=== PATIENT | male | born 1945 | race Caucasian/White ===

== ENCOUNTER 2018-05-18 12:54 | Outpatient (CLI) | payer MEDICARE ==
[2018-05-18 14:30] LABS: Bilirubin Negative (Negative); Blood, Urine Negative (Negative); Clarity CLEAR (Clear); Glucose, Urine (Dipstick) Negative (Negative); Leukocyte Negative (Negative); Nitrite Negative (Negative); Protein, Urine (Dipstick) Negative (Neg-Trace); Specific Gravity, Urine 1.011 (1.002-1.036); Urobilinogen 0.2 mg/dL (0.2-1.0); pH, Urine 5.5 (5.0-9.0)
[2018-05-18 14:38] LABS: Bacteria/HPF None Seen HPF (None Seen); Hyaline Casts/LPF 0-3 HYALINE CAST LPF (0-3 Hyaline); RBC/HPF 0-3 HPF (0-3); Squamous Epithelial None Seen HPF (0-3); WBC/HPF None Seen HPF (0-3)
--- NOTE | 2018-05-18 15:55 | EKG ---
Test Reason : Blood Pressure : / mmHG Vent. Rate : 067 BPM Atrial Rate : 067 BPM P-R Int : 180 ms QRS Dur : 096 ms QT Int : 396 ms P-R-T Axes : 054 063 047 degrees QTc Int : 418 ms Normal sinus rhythm Incomplete right bundle branch block Borderline ECG Confirmed by TOMMIE ALVARADO ([id number]) on 05/18/2018 3:55:45 PM Referred By: SHREE Confirmed By:TOMMIE ALVARADO
== END 2018-05-18 12:55 | disposition home or self-care (01) ==
LOC: LABBT 12:54
PROVIDERS: ATTEND Orthopaedic Surgery
DX: Z01.818 Encounter for other preprocedural examination (principal); M16.12 Unilateral primary osteoarthritis, left hip
CPT/HCPCS: 81001; 87081; 93005; 93010

== ENCOUNTER 2018-05-18 13:00 | Inpatient (IN) | payer MEDICARE ==
--- NOTE | 2018-05-25 09:06 | HP ---
HISTORY OF PRESENT ILLNESS: This is a 73-year-old male with a long history of progressive problems with his left hip without injuries. He has had progressive symptoms despite rest, restriction of activities, anti-inflammatory medications, cortisone injections and life style adjustments. The pain is interfering with his daily activities of walking, getting dressed, working and sleeping. PAST MEDICAL HISTORY: Please see old chart. The patient has had previous right total hip replacement and right total knee replacement with good results. He has no major medical problems. ALLERGIES: HE HAS NO KNOWN ALLERGIES. MEDICATIONS: He has been taking ibuprofen for his current complaints. FAMILY HISTORY: Otherwise unremarkable. SOCIAL HISTORY: Otherwise unremarkable. REVIEW OF SYSTEMS: Otherwise unremarkable. PHYSICAL EXAMINATION: GENERAL: Reveals a healthy male. HEENT: Unremarkable. NECK: Supple. CHEST: Clear. HEART: Regular rate and rhythm. ABDOMEN: Soft, nontender. RECTAL AND GENITAL EXAMS: Deferred. EXTREMITIES: Pertinent findings in the left hip. Leg lengths were equal. There is tenderness over the greater trochanter and anterior hip. There is decreased range of motion and groin pain with internal rotation of the left hip. There is left antalgic gait. NEUROVASCULAR: Intact. DIAGNOSTIC STUDIES: X-rays of the left hip reveal moderately severe DJD and joint narrowing, which has progressed from previous x-rays. MRI scan of the left hip reveals significant DJD, which is more pronounced than x-ray. LABORATORY DATA: Laboratory studies reveal the patient did have 2/3 positive MRSA screens and has been treated with Hibiclens bath and Bactroban nasal ointment. IMPRESSION: Degenerative arthritis, left hip. Status post right total hip replacement. Status post right total knee replacement. History of positive methicillin-resistant Staphylococcus aureus screen. PLAN: Left total hip replacement. The nature of the surgery, length of recovery, potential complications such as infection, loss of motion, incomplete relief, thromboembolic phenomena, leg-length discrepancy, possible transfusion, need for revision have been discussed in detail. Job ID: [id number] [facility]
[2018-05-29] MEDS ORDERED: Vancomycin HCl 1.5 GM in Sodium Chloride 0.9% 250 ML 300 ML IVPB SCH ×3 (06:00→18:00)
[2018-05-29] MEDS ORDERED: Midazolam HCl 2 mg/2 ml Vial ONE (06:28)
[2018-05-29] MEDS ORDERED: Fentanyl 100 MCG/2 ML VIAL ONE (06:28)
[2018-05-29] MEDS ORDERED: Lidocaine 1.5% w/Epi 1:200K 30 ML VIAL (Epid Use) ONE (06:29)
[2018-05-29] MEDS ORDERED: Tranexamic Acid 1,000 MG/10 ML VIAL ONE ×2 (07:01→09:02)
[2018-05-29] MEDS ORDERED: Sodium Chloride 0.9% 100 ML ONE (07:01)
[2018-05-29] MEDS ORDERED: Albuterol Sulfate HFA (OR ONLY) ONE (07:03)
[2018-05-29] MEDS ORDERED: Ropivacaine 0.2% HCl/PF 20 ML ONE (07:21)
[2018-05-29] MEDS ORDERED: traMADol HCl 50 MG TAB PO PRN ×3 (07:30→10:10)
[2018-05-29] MEDS ORDERED: Zolpidem Tartrate 5 MG TAB PO PRN ×2 (07:30→10:10)
[2018-05-29] MEDS ORDERED: Naloxone HCl 0.4 mg/ml Vial IVP PRN (07:30)
[2018-05-29] MEDS ORDERED: Ondansetron PF 4 MG/2 ML Vial IVP PRN ×2 (07:30→10:10)
[2018-05-29] MEDS ORDERED: Naloxone HCl 0.4 mg/ml Vial IV PRN (07:30)
[2018-05-29] MEDS ORDERED: Promethazine HCl 25 MG/ML VIAL IM PRN (07:30)
[2018-05-29] MEDS ORDERED: Promethazine HCl 25 MG SUPP PR PRN (07:30)
[2018-05-29] MEDS ORDERED: Hydrocerin (Eucerin) Cream 120 gm Jar TOP PRN (07:30)
[2018-05-29] MEDS ORDERED: diphenhydrAMINE 50 MG/ML VIAL IM PRN (07:30)
[2018-05-29] MEDS ORDERED: HYDROcodone/Acetaminophen 5/325 mg Tablet PO PRN (07:30)
[2018-05-29] MEDS ORDERED: diphenhydrAMINE 50 MG/ML VIAL IVP PRN (07:30)
[2018-05-29] MEDS ORDERED: Bupivacaine 0.25% 10 ML VIAL EPIDURAL PRN (07:30)
[2018-05-29] MEDS ORDERED: Sodium Chloride 0.9% 10 ML ONE (07:32)
[2018-05-29] MEDS ORDERED: Tranexamic Acid 1,000 MG/10 ML VIAL IVP SCH (09:00)
[2018-05-29] MEDS ORDERED: Tranexamic Acid 1,000 MG in Sodium Chloride 0.9% 100 ML IVPB SCH ×2 (09:00→10:10)
[2018-05-29] MEDS ORDERED: Fentanyl 5 mcg/Bup 0.075% Cadd 100 ML EPIDURAL ONE (09:13)
[2018-05-29] MEDS ORDERED: Albuterol Sulfate 2.5 mg/3 ml Neb NEB PRN (10:10)
[2018-05-29] MEDS ORDERED: diphenhydrAMINE 25 MG CAP PO PRN ×2 (10:10)
[2018-05-29] MEDS ORDERED: Acetaminophen 325 MG TAB PO PRN (10:10)
[2018-05-29] MEDS ORDERED: Promethazine HCl 25 MG/ML VIAL SLOW IVP PRN (10:10)
[2018-05-29] MEDS ORDERED: HYDROcodone/Acetaminophen 10/325 mg Tablet PO PRN ×2 (10:10)
[2018-05-29] MEDS ORDERED: Fentanyl 100 MCG/2 ML VIAL SLOW IVP PRN ×2 (10:10)
[2018-05-29] MEDS ORDERED: Rocuronium Bromide 10 MG/ML (10ML VIAL) ONE (10:25)
[2018-05-29] MEDS ORDERED: Lidocaine 1% PF 5 ML VIAL ONE (10:25)
[2018-05-29] MEDS ORDERED: Ondansetron PF 4 MG/2 ML Vial ONE (10:25)
[2018-05-29] MEDS ORDERED: PHENYLEPHRINE-NS 100 MCG/ML 10 ML SYRINGE ONE (10:25)
[2018-05-29] MEDS ORDERED: Glycopyrrolate 0.2 MG/ML 5 ML SYRINGE ONE (10:25)
[2018-05-29] MEDS ORDERED: PROPOFOL 200 MG/20 ML VIAL ONE (10:25)
[2018-05-29] MEDS: Sodium Chloride 0.9% 1,000 ML IV SCH ×2 (10:37→21:31)
[2018-05-29] MEDS ORDERED: Lactinex Tablet PO SCH (10:45)
[2018-05-29] MEDS ORDERED: Aspirin 81 mg Enteric Coated Tablet PO SCH (10:45)
--- NOTE | 2018-05-29 11:03 | RAD ---
TWO TO 3 VIEW LEFT HIP SERIES: INDICATION: Postop total hip, portable. FINDINGS: There is a left hip arthroplasty appropriately located without hardware complication. Surgical sutur e material is seen overlying the partially imaged left hemipelvis. IMPRESSION: Postoperative left hip without acute hardware complication. POS: DEM[facility]RIS
[2018-05-29] MEDS ORDERED: Ketorolac Tromethamine 30 MG/ML VIAL IVP SCH (12:00)
--- NOTE | 2018-05-29 12:13 | OP ---
DATE OF PROCEDURE: 05/29/2018 FORM DRAFTER: Ragini Mcintyre PA-C ANESTHESIA: General plus epidural. PREOPERATIVE DIAGNOSIS: Degenerative arthritis, left hip. POSTOPERATIVE DIAGNOSIS: Degenerative arthritis, left hip. PROCEDURE PERFORMED: Left total hip replacement with uncemented [place] Trident PSL acetabular component, 56 mm with X3 polyethylene insert, and uncemented [place] Accolade femoral stem size #4 with 132 degree neck angle trunnion, and 36 mm standard neck length metal femoral head. DESCRIPTION OF PROCEDURE: After satisfactory anesthesia was induced in supine position, sequential compression devices were placed on the nonoperative leg throughout the procedure. The patient was then placed in the left lateral decubitus position. This position was held with the hip positioning device. The patient's left hip was then prepped and draped in routine sterile fashion. The hip was approached through a lateral curvilinear incision centered over the greater trochanter, carried down through the subcutaneous tissues and bleeding points were controlled with the Bovie cautery. IT band and gluteal fascia were split in-line with the skin incision. A direct lateral approach to the hip joint was accomplished by dividing the anterior third of the gluteus medius and minimus tendons with the Bovie cautery and flexing this as a single flap anteriorly and medially along with the vastus lateralis. Anterior capsulectomy was performed and hip dislocated anteriorly. There was markedly degenerative arthritis of the hip. Femoral neck was osteotomized with oscillating saw using a trial prosthesis as a guide. The acetabulum was exposed and cleaned of all soft tissue and debris and then reamed in sequence with prior reamers to a total of 56 mm down to bleeding subchondral bone. It was felt that a 56 mm Trident PSL outer shell to place in a press-fit fashion. The permanent outer shell was hammered in position. There was good fit and stability at the outer rim and the permanent X3 polyethylene insert was placed. The proximal femur was then exposed and opened with a box osteotome and rasped in sequence to accept a #4 Accolade femoral rasp. The 132 degree neck angle trunnion was then placed on the rasp and trial reduction with a standard neck length 36 mm head gave appropriate size, fit, and stability. The hip was again dislocated anteriorly and the trial components were removed. The hip was copiously irrigated with pulsatile lavage. The permanent #4 Accolade femoral stem was then hammered in position. There was again good fit and stability of the component. The standard neck length 36 mm metal head was then placed on the trunnion. The hip again reduced and found to be stable. The knee was then copiously irrigated. The abductors were repaired with interrupted #2 Vicryl. IT band and gluteal fascia were closed with interrupted #2 Vicryl and a running #2 Quill. Subcutaneous tissues were closed with a running 0 Quill suture and the skin was closed with running subcuticular 3-0 Monoderm and SurgiSeal skin adhesive. Sterile dressing was applied and the patient was turned to the supine position with a pillow placed between his legs. Sequential compression devices were applied to the operative leg. He was awakened, taken to the Recovery Room in stable condition. There were no apparent intraoperative complications. The estimated blood loss was 300 mL. Job ID: [id number]
[2018-05-29] MEDS: Ketorolac Tromethamine 30 MG/ML VIAL IVP SCH ×3 (13:11→23:04)
[2018-05-29] MEDS: diphenhydrAMINE 25 MG CAP PO PRN ×2 (15:02→21:32)
[2018-05-29] MEDS: CEFAZOLIN 2 GM in Premix Bag 1 BAG IVPB SCH ×2 (15:03→22:00)
[2018-05-29] MEDS ORDERED: SAW PALMETTO 900 MG PO SCH (21:00)
[2018-05-29] MEDS: Aspirin 81 mg Enteric Coated Tablet PO SCH (21:28)
[2018-05-29] MEDS: Lactinex Tablet PO SCH (21:28)
[2018-05-30] MEDS: Fentanyl 5 mcg/Bup 0.075% Cadd 100 ML EPIDURAL SCH ×2 (01:05→18:47)
[2018-05-30 05:24] LABS: Hemoglobin 12.8 g/dL (14.0-18.0); Mean Corpuscular HGB CONC 32.9 g/dL (32.0-36.0); Mean Corpuscular Hemoglobin 33.1 pg (27.0-31.0); Mean Platelet Volume 5.9 fL (7.4-10.4); Platelet Count 219 thou/uL (130-400); Red Blood Cell (RBC) Count 3.86 mill/uL (4.70-6.10); White Blood Cell (WBC) Count 11.8 thou/uL (4.8-10.8)
[2018-05-30] MEDS: Ketorolac Tromethamine 30 MG/ML VIAL IVP SCH ×4 (06:07→23:25)
[2018-05-30] MEDS: Sodium Chloride 0.9% 1,000 ML IV SCH ×2 (06:41→15:45)
[2018-05-30] MEDS: Multivitamin W/ Minerals 1 TAB PO SCH (07:29)
[2018-05-30] MEDS: Ferrous Gluconate 324 MG TAB PO SCH ×2 (07:29→16:31)
[2018-05-30] MEDS: Lactinex Tablet PO SCH ×3 (07:29→21:06)
[2018-05-30] MEDS: HYDROcodone/Acetaminophen 5/325 mg Tablet PO PRN ×2 (07:30→19:51)
[2018-05-30] MEDS: Senokot S 8.6-50 MG TAB PO SCH ×2 (07:30→21:07)
[2018-05-30] MEDS: Aspirin 81 mg Enteric Coated Tablet PO SCH ×2 (07:30→21:06)
[2018-05-30] MEDS ORDERED: Benzonatate 100 MG CAP PO PRN (09:01)
[2018-05-30] MEDS ORDERED: Nitroglycerin 0.4 MG TAB (25 Tab Bottle) SL PRN (09:01)
[2018-05-30] MEDS ORDERED: hydrALAZINE 20 MG/ML VIAL SLOW IVP PRN (09:01)
[2018-05-30] MEDS ORDERED: Diabetic Tussin 200 MG/10 ML UDCUP PO PRN (09:01)
[2018-05-30] MEDS ORDERED: Bisacodyl 5 MG TAB PO PRN (09:01)
[2018-05-30] MEDS ORDERED: Calcium Carbonate 500 MG ChewTAB PO PRN (09:01)
[2018-05-30] MEDS ORDERED: cloNIDine 0.1 MG TAB PO PRN (09:01)
[2018-05-30] MEDS ORDERED: Acetaminophen 325 MG TAB PO PRN (09:07)
[2018-05-30 11:08] VITALS: BMI 30.4
--- NOTE | 2018-05-30 12:56 | PDOC.PN ---
- Subjective Encounter Start Date: 05/30/18 Encounter Start Time: 12:55 Subjective: pt seen and examined .has some complaints of SOB on exertion -: some congestion. -: s/p Left THR - Objective MAR Reviewed: Yes Vital Signs & Weight: Vital Signs (12 hours) Temp Pulse Resp BP Pulse Ox 05/30/18 07:55 98.6 F 98 20 109/68 93 L 05/30/18 07:39 88 L 05/30/18 04:28 98.3 F 88 20 136/68 96 Weight Admit Weight 212 lb Weight 212 lb I&O: 05/29/18 05/30/18 05/31/18 06:59 06:59 06:59 Intake Total 2761.0 1272 Output Total 1500 Balance 1261.0 1272 Result Diagrams: 05/30/18 05:13 Additional Labs: Laboratory Tests 05/23/18 05/23/18 05/30/18 13:25 13:25 05:13 WBC 9.7 11.8 H Hgb 15.5 12.8 L Sodium 131 L Potassium 4.0 Chloride 104 Carbon Dioxide 24 Anion Gap 7 L BUN 12 Creatinine 0.85 Glucose 128 H Phys Exam - Physical Examination Constitutional: NAD HEENT: PERRLA, moist MMs, sclera anicteric, oral pharynx no lesions Neck: no nodes, no JVD, supple, full ROM Respiratory: no wheezing, no rales, no rhonchi, clear to auscultation bilateral Cardiovascular: RRR, no significant murmur, no rub Gastrointestinal: soft, non-tender, no distention, positive bowel sounds Musculoskeletal: no edema, pulses present Neurological: non-focal, normal sensation, moves all 4 limbs Psychiatric: normal affect, A&O x 3 Skin: no rash Dx/Plan (1) Osteoarthritis Code(s): M19.90 - UNSPECIFIED OSTEOARTHRITIS, UNSPECIFIED SITE Status: Chronic Qualifiers: Osteoarthritis location: hip Laterality: right (2) Status post total hip replacement, left Code(s): Z96.642 - PRESENCE OF LEFT ARTIFICIAL HIP JOINT Status: Acute - Plan DVT proph w/SCDs ASA bid for stroke prophylaxis. add pepcid for GI prophylaxis -: AM labs -: add mucinex.prn nebs,long history of smoking -: add prn meds * . Review of Systems - Review of Systems Constitutional: negative: fever, chills, sweats, weakness, malaise, other ENT: negative: Ear Pain, Ear Discharge, Nose Pain, Nose Discharge, Nose Congestion, Mouth Pain, Mouth Swelling, Throat Pain, Throat Swelling, Other Respiratory: SOB with Excertion, Sputum. negative: Cough, Dry, Shortness of Breath, Hemoptysis, Pleuritic Pain, Wheezing Cardiovascular: negative: chest pain, palpitations, orthopnea, paroxysmal nocturnal dyspnea, edema, light headedness, other Gastrointestinal: negative: Nausea, Vomiting, Abdominal Pain, Diarrhea, Constipation, Melena, Hematochezia, Other Genitourinary: negative: Dysuria, Frequency, Incontinence, Hematuria, Retention , Other Musculoskeletal: negative: Neck Pain, Shoulder Pain, Arm Pain, Back Pain, Hand Pain, Leg Pain, Foot Pain, Other Neurological: negative: Weakness, Numbness, Incoordination, Change in Speech, Confusion, Seizures, Other - Medications/Allergies Allergies/Adverse Reactions: Allergies Allergy/AdvReac Type Severity Reaction Status Date / Time morphine Allergy "FEELS Verified 05/18/18 13:04 VERY BAD" ADHESIVE TAPE Allergy RASH, Uncoded 05/18/18 13:04 BLISTERS Medications: Current Medications Acetaminophen (Tylenol) 650 mg PO Q4H PRN PRN Reason: Headache/Fever or Pain Acetaminophen (Tylenol) 650 mg PO Q6H PRN PRN Reason: Headache/Fever or Pain Hydrocodone Bitart/Acetaminophen ([place] 5/325) 1 tab PO Q4H PRN PRN Reason: Mild Pain 1-3 Hydrocodone Bitart/Acetaminophen ([place] 5/325) 2 tab PO Q4H PRN PRN Reason: For Moderate Pain 4-6 Last Admin: 05/30/18 07:30 Dose: 2 tab Acidophilus (Floranex) 2 tab PO BID [facility] Last Admin: 05/30/18 10:07 Dose: Not Given Albuterol Sulfate (Ventolin) 2.5 mg NEB Q6H PRN PRN Reason: SOB &/or Wheezing Aspirin (Ecotrin) 81 mg PO BID [facility] Last Admin: 05/30/18 07:30 Dose: 81 mg Benzonatate (Tessalon) 100 mg PO Q6H PRN PRN Reason: Cough Bisacodyl (Dulcolax) 10 mg PO DAILYPRN PRN PRN Reason: Constipation Calcium Carbonate (Tums) 1,000 mg PO Q4H PRN PRN Reason: Heartburn or Indigestion Clonidine (Catapres) 0.1 mg PO Q4H PRN PRN Reason: SBP > _160___ Diphenhydramine HCl (Benadryl) 25 mg PO Q3H PRN PRN Reason: Itching Last Admin: 05/29/18 21:32 Dose: 25 mg Diphenhydramine HCl (Benadryl) 25 mg IM Q3H PRN PRN Reason: Itching Diphenhydramine HCl (Benadryl) 25 mg IVP Q3H PRN PRN Reason: Itching Diphenhydramine HCl (Benadryl) 50 mg PO HS PRN PRN Reason: Allergies Emollient Cream (Hydrocerin Cream) 0 gm TOP PRN PRN PRN Reason: Itching Famotidine (Pepcid) 20 mg PO BID [facility] Ferrous Gluconate (Fergon) 324 mg PO BID[facility] Last Admin: 05/30/18 07:29 Dose: 324 mg Guaifenesin (Robitussin Sf) 200 mg PO Q4H PRN PRN Reason: Cough Hydralazine HCl (Apresoline) 10 mg SLOW IVP Q4H PRN PRN Reason: SBP > 180 and HR < 70 Fentanyl Citrate (Fentanyl/Bupivacaine) 100 mls @ 6 mls/hr EPIDURAL INF [facility] Last Admin: 05/30/18 01:05 Dose: 100 mls Sodium Chloride (Normal Saline 0.9%) 1,000 mls @ 100 mls/hr IV .Q10H [facility] Last Admin: 05/30/18 06:41 Dose: Not Given Iron/Minerals/Multivitamins (Theragran M) 1 tab PO DAILY [facility] Last Admin: 05/30/18 07:29 Dose: 1 tab Ketorolac Tromethamine (Toradol) 15 mg IVP Q6HR [facility] Stop: 05/31/18 06:01 Last Admin: 05/30/18 06:41 Dose: 15 mg Miscellaneous Information (Communication Order-Pharmacy) 1 each FS ASDIR [facility] Naloxone HCl (Narcan) 0.2 mg IV Q5MIN PRN PRN Reason: RR <=8 OR OBTUNDED/UNAROUSABLE Naloxone HCl (Narcan) 0.1 mg IVP Q15MIN PRN PRN Reason: URINARY RETENTION Nitroglycerin (Nitrostat) 0.4 mg SL Q5MIN PRN PRN Reason: Chest Pain Ondansetron HCl (Zofran) 4 mg IVP Q6H PRN PRN Reason: Nausea/Vomiting Promethazine HCl (Phenergan) 12.5 mg IM Q4H PRN PRN Reason: Nausea Promethazine HCl (Phenergan Suppository) 25 mg NH Q4H PRN PRN Reason: Nausea/Vomiting Promethazine HCl (Phenergan) 12.5 mg SLOW IVP Q4H PRN PRN Reason: Nausea/Vomiting Senna/Docusate Sodium (Senokot S) 2 tab PO BID [facility] Last Admin: 05/30/18 07:30 Dose: 2 tab Sodium Chloride (Flush - Normal Saline) 10 ml IVF PRN PRN PRN Reason: Saline Flush Tramadol HCl (Ultram) 50 mg PO Q6H PRN PRN Reason: Mild Pain 1-3 Tramadol HCl (Ultram) 100 mg PO Q6H PRN PRN Reason: Moderate Pain 4-6 Zolpidem Tartrate (Ambien) 5 mg PO HSPRN PRN PRN Reason: Insomnia
[2018-05-30] MEDS: Famotidine 20 MG TAB PO SCH ×2 (12:58→19:51)
--- NOTE | 2018-05-30 14:19 | PRG ---
DATE OF SERVICE: 05/30/2018 SUBJECTIVE: Hermilo is a 73-year-old male, postop day #1 left total hip arthroplasty. He has very little pain. He is quite comfortable, sitting up this morning and alert. OBJECTIVE: VITAL SIGNS: Temperature 96, pulse 98, respiratory rate 20, nonlabored, blood pressure is 109/68. GENERAL: He is alert and oriented to person, place, time, situation, grossly nonfocal. EXTREMITIES: His incision clean without any strike through. He is neurovascular intact in the left lower extremity. LABORATORY DATA: Hemoglobin, hematocrit 12.8 and 38.9. IMPRESSION: A 73-year-old male, postoperative day #1, left total hip arthroplasty, stable. PLAN: 1. Continue current care. 2. Probable discharge tomorrow. Job ID: [id number]
[2018-05-30] MEDS: guaiFENesin ER 600 MG TAB PO SCH (21:06)
[2018-05-31] MEDS: Sodium Chloride 0.9% 1,000 ML IV SCH ×2 (01:25→13:35)
[2018-05-31 05:57] LABS: #Eosinphils 0.3 thou/uL (0.0-0.7); #Lymphocytes 2.1 thou/uL (1.20-3.40); #Monocytes 1.1 thou/uL (0.11-0.59); #Neutrophils 8.3 thou/uL (1.40-6.50); %Basophils 0.4 % (0.0-1.0); %Eosinophils 2.1 % (0.0-10.0); %Lymphocytes 17.8 % (21.0-51.0); %Monocytes 9.3 % (0.0-10.0); %Neutrophils 70.4 % (42.0-75.0); Hemoglobin 12.2 g/dL (14.0-18.0); Mean Corpuscular HGB CONC 32.6 g/dL (32.0-36.0); Mean Corpuscular Hemoglobin 33.1 pg (27.0-31.0); Platelet Count 209 thou/uL (130-400); RBC Distribution Width 11.9 % (11.5-14.5); White Blood Cell (WBC) Count 11.8 thou/uL (4.8-10.8)
[2018-05-31] MEDS: Ketorolac Tromethamine 30 MG/ML VIAL IVP SCH (06:10)
[2018-05-31] MEDS: HYDROcodone/Acetaminophen 5/325 mg Tablet PO PRN ×2 (06:17→10:52)
[2018-05-31 07:37] LABS: Anion Gap 10 mmol/L (10-20); BUN (Urea Nitrogen) 13 mg/dL (8.4-25.7); Calc. Creatinine Clearance 115 mL/min (70-130); Calcium 8.6 mg/dL (7.8-10.44); Carbon Dioxide 26 mmol/L (23-31); Chloride 101 mmol/L (98-107); Estimated GFR-MDRD Greater than 90; Glucose 108 mg/dL (83-110); Potassium 4.3 mmol/L (3.5-5.1); Sodium 133 mmol/L (136-145)
[2018-05-31] MEDS: Senokot S 8.6-50 MG TAB PO SCH (07:46)
[2018-05-31] MEDS: Aspirin 81 mg Enteric Coated Tablet PO SCH (07:47)
[2018-05-31] MEDS: Famotidine 20 MG TAB PO SCH (07:47)
[2018-05-31] MEDS: guaiFENesin ER 600 MG TAB PO SCH (07:47)
[2018-05-31] MEDS: Multivitamin W/ Minerals 1 TAB PO SCH (07:49)
[2018-05-31] MEDS: Ferrous Gluconate 324 MG TAB PO SCH (07:49)
[2018-05-31] MEDS: Lactinex Tablet PO SCH (13:35)
[2018-05-31 14:38] VITALS: BP 142/72; TEMP 98.2
--- NOTE | 2018-05-31 16:00 | PDOC.PN ---
- Subjective Encounter Start Date: 05/31/18 Encounter Start Time: 15:59 Subjective: seen and examined.feels well -: discussed smoking & encouraged cessation -: chr symptoms of SOB with exertion - Objective MAR Reviewed: Yes Vital Signs & Weight: Vital Signs (12 hours) Temp Pulse Resp BP Pulse Ox 05/31/18 12:25 98.2 F 80 16 142/72 H 92 L 05/31/18 08:00 98.3 F 83 18 133/74 92 L Weight Admit Weight 212 lb Weight 212 lb I&O: 05/30/18 05/31/18 06/01/18 06:59 06:59 06:59 Intake Total 2761.0 3432 972 Output Total 1500 1450 775 Balance 1261.0 1982 197 Result Diagrams: 05/31/18 05:22 05/31/18 05:22 Phys Exam - Physical Examination Constitutional: NAD HEENT: PERRLA, moist MMs, sclera anicteric, TM's clear, oral pharynx no lesions , 2+ tonsils Neck: no nodes, no JVD, supple, full ROM Respiratory: no wheezing, no rales, no rhonchi, clear to auscultation bilateral Cardiovascular: RRR, no significant murmur, no rub Gastrointestinal: soft, non-tender, no distention, positive bowel sounds Musculoskeletal: no edema, pulses present Neurological: non-focal, normal sensation, moves all 4 limbs Psychiatric: normal affect, A&O x 3 Skin: no rash Dx/Plan (1) Osteoarthritis Code(s): M19.90 - UNSPECIFIED OSTEOARTHRITIS, UNSPECIFIED SITE Status: Chronic Qualifiers: Osteoarthritis location: hip Laterality: right (2) Status post total hip replacement, left Code(s): Z96.642 - PRESENCE OF LEFT ARTIFICIAL HIP JOINT Status: Acute (3) Tobacco abuse Code(s): Z72.0 - TOBACCO USE Status: Acute - Plan add advair as an Outpt.add prn albuterol -: advised OP PCCM follow up but pt reluctant -: OK to DC home * . Review of Systems - Review of Systems Constitutional: negative: fever, chills, sweats, weakness, malaise, other Respiratory: negative: Cough, Dry, Shortness of Breath, Hemoptysis, SOB with Excertion, Pleuritic Pain, Sputum, Wheezing Cardiovascular: negative: chest pain, palpitations, orthopnea, paroxysmal nocturnal dyspnea, edema, light headedness, other Gastrointestinal: negative: Nausea, Vomiting, Abdominal Pain, Diarrhea, Constipation, Melena, Hematochezia, Other Genitourinary: negative: Dysuria, Frequency, Incontinence, Hematuria, Retention , Other Musculoskeletal: negative: Neck Pain, Shoulder Pain, Arm Pain, Back Pain, Hand Pain, Leg Pain, Foot Pain, Other - Medications/Allergies Allergies/Adverse Reactions: Allergies Allergy/AdvReac Type Severity Reaction Status Date / Time morphine Allergy "FEELS Verified 05/18/18 13:04 VERY BAD" ADHESIVE TAPE Allergy RASH, Uncoded 05/18/18 13:04 BLISTERS
== END 2018-05-31 14:40 | disposition home or self-care (01) | DRG 470 ==
LOC: SJJU 05-29 05:33
PROVIDERS: ADMIT Orthopaedic Surgery; ATTEND Orthopaedic Surgery
PROC: 0SRB02A Replacement of Left Hip Joint with Metal on Polyethylene Synthetic Substitute, Uncemented, Open Approach (ICD-10-PCS; principal; 2018-05-29)
DX: M16.12 Unilateral primary osteoarthritis, left hip (principal); F17.210 Nicotine dependence, cigarettes, uncomplicated; Z96.641 Presence of right artificial hip joint; Z96.651 Presence of right artificial knee joint; Z86.14 Personal history of Methicillin resistant Staphylococcus aureus infection
CPT/HCPCS: 36415; 80048; 85025; 85027; 94640; C1776; J1885; J2001; J2250; J2405; J2704; J2795; J3010; J3370; J7050; J7620; Q0163

== ENCOUNTER 2018-05-23 13:14 | Outpatient (CLI) | payer MEDICARE ==
[2018-05-23 13:56] LABS: #Eosinphils 0.2 thou/uL (0.0-0.7); #Lymphocytes 2.3 thou/uL (1.20-3.40); #Monocytes 0.7 thou/uL (0.11-0.59); #Neutrophils 6.5 thou/uL (1.40-6.50); %Basophils 0.4 % (0.0-1.0); %Eosinophils 1.9 % (0.0-10.0); %Lymphocytes 23.6 % (21.0-51.0); %Monocytes 7.5 % (0.0-10.0); %Neutrophils 66.6 % (42.0-75.0); Hemoglobin 15.5 g/dL (14.0-18.0); Mean Corpuscular HGB CONC 31.8 g/dL (32.0-36.0); Mean Corpuscular Hemoglobin 31.7 pg (27.0-31.0); Mean Corpuscular Volume 99.6 fL (78.0-98.0); Mean Platelet Volume 6.2 fL (7.4-10.4); Platelet Count 270 thou/uL (130-400); RBC Distribution Width 11.9 % (11.5-14.5); White Blood Cell (WBC) Count 9.7 thou/uL (4.8-10.8)
[2018-05-23 14:15] LABS: INR-International Normal Ratio 0.9; Prothrombin Time 12.4 SEC (12.0-14.7)
[2018-05-23 14:16] LABS: Anion Gap 7 mmol/L (10-20); BUN (Urea Nitrogen) 12 mg/dL (8.4-25.7); Calc. Creatinine Clearance 0 mL/min (70-130); Carbon Dioxide 24 mmol/L (23-31); Chloride 104 mmol/L (98-107); Estimated GFR-MDRD 89; Glucose 128 mg/dL (83-110); Sodium 131 mmol/L (136-145)
== END 2018-05-23 13:15 | disposition home or self-care (01) ==
LOC: LABBT 13:14
PROVIDERS: ATTEND Orthopaedic Surgery
DX: Z01.812 Encounter for preprocedural laboratory examination (principal); M16.12 Unilateral primary osteoarthritis, left hip
CPT/HCPCS: 80048; 85025; 85610; 86850; 86900; 86901